=== PATIENT | female | born 2000 | race Caucasian/White ===

== ENCOUNTER 2019-11-24 15:19 | Emergency (ER) | payer OTHER, MEDICAID, SELFPAY ==
[2019-11-24 15:28] VITALS: BP 118/75; PULSE 89; RESP 16; TEMP 36.4; O2SAT 97
--- NOTE | 2019-11-24 15:49 | ED.FEMALEGU ---
HPI - Female Genitourinary <RENETTA Gann - Last Filed: 11/24/19 17:06> General Chief complaint: Urogenital-Female Stated complaint: Painful rash, potential yeast infection Time Seen by Provider: 11/24/19 15:34 Source: patient Mode of arrival: Ambulatory Limitations: no limitations History of Present Illness HPI Narrative: The patient is a 19-year-old female nonsmoker who denies pertinent medical history presents with a chief complaint of a vaginal rash for the past several weeks. She states that it is a red rash in between groin folds and she is concerned about skin yeast infection. She denies any abdominal pain fevers nausea vomiting or diarrhea. She denies any risk of sexually transmitted infection. She denies any vaginal discharge. She states she does not want an internal exam today, just wants somebody to look at the rash. She has not followed up with primary care provider regarding this since the coronavirus started. She denies any dysuria urgency or frequency. She states that the rash is very itchy. She has tried Desitin and found helpful, but it did not last. Related Data Previous Rx's Medication Instructions Recorded nystatin 1 applictn TOP TID 10 Days #30 gram 11/24/19 Allergies Allergy/AdvReac Type Severity Reaction Status Date / Time No Known Drug Allergies Allergy Verified 11/24/19 15:29 Review of Systems <GEO Gann - Last Filed: 11/24/19 17:06> Review of Systems Narrative: GENERAL: Denies chills, fatigue, malaise, fever, sweats. HEENT: Denies sinus pain, ear pain, sore throat, difficulty swallowing, dizziness. RESPIRATORY: Denies dyspnea, cough, wheezing, hemoptysis, sputum. CARDIOVASCULAR: Denies chest pain, palpitations, orthopnea, edema, GASTROINTESTINAL: Denies nausea, vomiting, abdominal pain, diarrhea, constipation, melena. : See HPI MUSCULOSKELETAL: denies weakness, joint pain, or bony pain SKIN: See HPI NEUROLOGIC: Denies weakness, headache, numbness, change in speech, confusion, seizures, incoordination. PSYCHIATRIC: No concerning psychosocial issues. 12 point review of systems is negative except for those stated above Exam <GEO Gann - Last Filed: 11/24/19 17:06> Narrative Exam Narrative: GENERAL: This is a well-nourished, well-developed patient, in no acute distress HEAD: Atraumatic. Normocephalic. No temporal or scalp tenderness. EYES: Pupils equal round and reactive. Extraocular motions intact. No scleral icterus. No injection or drainage. ENT: Nose without bleeding, purulent drainage or septal hematoma. Throat without erythema, tonsillar hypertrophy or exudate. Uvula midline. Airway patent. NECK: Trachea midline. No JVD or lymphadenopathy. Supple, nontender, no meningeal signs. CARDIOVASCULAR: Regular rate and rhythm RESPIRATORY: Clear to auscultation. Breath sounds equal bilaterally. No wheezes, rales, or rhonchi. GASTROINTESTINAL: Abdomen soft, non-tender, nondistended. No hepato-splenomegaly, or palpable masses. No guarding. EXTREMITIES: No clubbing, cyanosis, or edema. No joint tenderness, effusion, or edema noted. BACK: Nontender without deformity or crepitance. No flank tenderness. NEURO: AOx3. : With Cira RN at bedside. Flat erythematous rash and bilateral inguinal folds noted with sharp scalloped edges. Satellite lesions noted. No drainage. Consistent with candidiasis Initial Vital Signs Initial Vital Signs: Vital Signs Temperature 97.5 F L 11/24/19 15:28 Pulse Rate 89 11/24/19 15:28 Respiratory Rate 16 11/24/19 15:28 Blood Pressure 118/75 11/24/19 15:28 Pulse Oximetry 97 11/24/19 15:28 <Eleanor Jose DO - Last Filed: 11/24/19 18:31> Initial Vital Signs Initial Vital Signs: Vital Signs Temperature 97.5 F L 11/24/19 15:28 Pulse Rate 89 11/24/19 15:28 Respiratory Rate 16 11/24/19 15:28 Blood Pressure 118/75 11/24/19 15:28 Pulse Oximetry 97 11/24/19 15:28 Scores <RENETTA Gann - Last Filed: 11/24/19 17:06> GCS [place] coma scale eye opening: Spontaneous [place] coma scale verbal response: Orientated [place] coma scale motor response: Obey commands [place] coma scale total score: 15 Course <RENETTA Gann - Last Filed: 11/24/19 17:06> Orders Ordered: ED Orders 11/24/19 15:45 Urine Culture Stat Urine Microscopic Stat Vital Signs Vital signs: Vital Signs - 8 hr 11/24/19 15:28 Temperature 97.5 F L Pulse Rate 89 Respiratory Rate 16 Blood Pressure 118/75 Pulse Oximetry 97 <Eleanor Jose DO - Last Filed: 11/24/19 18:31> Orders Ordered: ED Orders 11/24/19 15:45 Urine Culture Stat Urine Microscopic Stat Vital Signs Vital signs: Vital Signs - 8 hr 11/24/19 15:28 Temperature 97.5 F L Pulse Rate 89 Respiratory Rate 16 Blood Pressure 118/75 Pulse Oximetry 97 MDM - Female Genitourinary <CHRISTOPHER Gann-BC - Last Filed: 11/24/19 17:06> Lab Data Labs: Lab Results 11/24/19 Range/Units 15:45 Urine RBC None seen (0-5/HPF) Urine WBC 5-10/hpf H (0-5/HPF) Ur Squamous Epith Cells 1-5 /hpf (0-5/HPF) Urine Bacteria Few (2-10) H (None) Ur Culture Indicated? Specimen cultured Point of Care Testing Test Results Negative Urine Dip Bedside Urine Glucose Negative Bedside Urine Bilirubin - Negative Bedside Urine Ketone - Negative Urine Specific [place] 1.015 Bedside Urine Occult Blood - Negative Bedside Urine pH 6.0 Bedside Urine Protein - Negative Bedside Urine Urobilinogen - Negative Bedside Urine Nitrite - Negative Bedside Urine Leukocytes +++ 500 Esterase MDM Narrative Medical decision making narrative: The patient is a 19-year-old female who presents with a chief complaint of a rash in her inguinal folds. Exam is consistent with candidiasis. Patient was given prescription of nystatin. Patient this does have slight bacteria in her urine, though negative . She has no urinary tract infection symptoms denies dysuria urgency or frequency so we will hold off on treatment for now and urine cultures pending at this point time. Encouraged follow-up with primary care provider, come back to the emergency department for any acute concerns. Patient has no questions or concerns upon discharge and states understanding of return precautions as well as follow-up care. <Eleanor Jose DO - Last Filed: 11/24/19 18:31> Lab Data Labs: Lab Results 11/24/19 Range/Units 15:45 Urine RBC None seen (0-5/HPF) Urine WBC 5-10/hpf H (0-5/HPF) Ur Squamous Epith Cells 1-5 /hpf (0-5/HPF) Urine Bacteria Few (2-10) H (None) Ur Culture Indicated? Specimen cultured Point of Care Testing Test Results Negative Urine Dip Bedside Urine Glucose Negative Bedside Urine Bilirubin - Negative Bedside Urine Ketone - Negative Urine Specific [place] 1.015 Bedside Urine Occult Blood - Negative Bedside Urine pH 6.0 Bedside Urine Protein - Negative Bedside Urine Urobilinogen - Negative Bedside Urine Nitrite - Negative Bedside Urine Leukocytes +++ 500 Esterase Discharge Plan Departure Patient Disposition: Home Clinical Impression: Yeast dermatitis Discharge Date/Time: 11/24/19 16:50 Instructions: Yeast Infection-Skin Activity Restrictions/Additional Instructions: Thank you for trusting us with your care today I sent a prescription of nystatin powder to [facility] We have a urine culture pending. We will call you the next few days if it results with the urinary tract infection Please follow-up with primary care provider in the next few days Please come back to the emergency department for any acute concerns Prescriptions: New nystatin 100,000 unit/gram powder 1 applictn TOP TID 10 Days Qty: 30 RF: 0
--- NOTE | 2019-11-24 16:02 | PC.NURSE ---
significant redness noted to labia bilaterally, groin folds and inner thigh. Red dots trailing down inner thighs. Reports pain, burning, itching
[2019-11-24 16:11] LABS: RBC Urine None Seen (0-5/HPF)
[2019-11-24 16:20] LABS: Bacteria Urine Few (2-10); Culture Indicated Urine Specimen Cultured; Squamous Epithelial Cell Urine 1-5 /HPF (0-5/HPF); WBC Urine 5-10/HPF (0-5/HPF)
== END 2019-11-24 16:50 | disposition home or self-care (01) ==
PROVIDERS: Emergency Provider Nurse Practitioner Family
DX: B37.3 Candidiasis of vulva and vagina (principal)
CPT/HCPCS: 81003; 81015; 81025; 87077; 87086; 87147; 87186; 99282

== ENCOUNTER 2019-12-14 19:58 | Emergency (ER) | payer OTHER, MEDICAID, SELFPAY ==
[2019-12-14 20:13] VITALS: BP 123/56; PULSE 83; RESP 16; TEMP 36.4; O2SAT 100; BMI 34.9
== END 2019-12-14 22:27 | disposition left against medical advice (07) ==
PROVIDERS: Emergency Provider Emergency Medicine
CPT/HCPCS: 99281

== ENCOUNTER 2019-12-15 19:27 | Emergency (ER) | payer OTHER, MEDICAID, SELFPAY ==
[2019-12-15 19:33] VITALS: BP 126/76; PULSE 91; RESP 14; TEMP 36.4; O2SAT 100; BMI 34.9
--- NOTE | 2019-12-15 19:38 | ED.WOUNDLAC ---
HPI - Wound/Laceration General Chief Complaint: Wound/Laceration Stated Complaint: abcess right forearm Time Seen by Provider: 12/15/19 19:38 Source: patient Mode of arrival: Ambulatory History of Present Illness HPI narrative: 19-year-old woman with history of depression developing and area of tenderness and erythema on the right forearm. It has been there for 3 days now and is expanding. Initially started as a small bump that she has thought was perhaps an infection around hair follicle. Yesterday it seemed like it was getting better and looked like it was coming to a head. She tried trying to Abraham it with a needle but did not get any purulence material back. Today the surrounding erythema has expanded. She describes no fevers, chills, cough, dyspnea, palpitations, dizziness, lightheadedness, abdominal pain, vomiting, diarrhea, dysuria, flank pain or other skin changes of any kind. Related Data Previous Rx's Medication Instructions Recorded fluconazole 150 mg PO DAILY #1 tab 12/15/19 sulfamethoxazole-trimethoprim 1 tab PO BID #14 tab 12/15/19 Allergies Allergy/AdvReac Type Severity Reaction Status Date / Time No Known Drug Allergies Allergy Verified 12/15/19 19:33 Review of Systems Review of Systems Narrative: Remainder of review of systems, unremarkable except as noted in HPI. Patient History Medical History Depression (Acute) IUD contraception (Acute) Social History Smoking Status: Never smoker Smoking Status: Never smoker alcohol intake frequency: 0-2 drinks per day Substance Use Type: does not use Exam Narrative Exam Narrative: General: Alert appropriate in no acute distress Respiratory: Able to speak in full sentences, no obvious respiratory distress Skin: No obvious rashes, warm and dry Neurologic: Grossly intact no obvious asymmetries or abnormalities Psych, appropriate insight and affect, cooperative Extremity: Right forearm with a deeper red nonfluctuant area with a punctate center that is approximately 2 cm in diameter and surrounding 2 cm of spreading erythema. No axillary adenopathy, no lymphangitis spread. Completely neurovascularly intact in the right upper extremity Initial Vital Signs Initial Vital Signs: Vital Signs Temperature 97.6 F 12/15/19 19:33 Pulse Rate 91 H 12/15/19 19:33 Respiratory Rate 14 12/15/19 19:33 Blood Pressure 126/76 12/15/19 19:33 Pulse Oximetry 100 12/15/19 19:33 Course Orders Ordered: Discontinued Medications Trimethoprim/Sulfamethoxazole (Bactrim Ds) 1 tab PO NOW ONE Stop: 12/15/19 19:45 Last Admin: 12/15/19 19:48 Dose: 1 tab Documented by: MARCELLA Vital Signs Vital signs: Vital Signs - 8 hr 12/15/19 19:33 Temperature 97.6 F Pulse Rate 91 H Respiratory Rate 14 Blood Pressure 126/76 Pulse Oximetry 100 [facility] - Wound/Laceration Medical Records Attestation: I reviewed the patient's medical records. [facility] Narrative Medical decision making narrative: Developing cellulitis without abscess right forearm. Uncomplicated. Will treat with Septra. Safe for home discharge Discharge Plan Departure Patient Disposition: Home Clinical Impression: Cellulitis Qualifiers: Site of cellulitis: extremity Site of cellulitis of extremity: upper extremity Laterality: right Qualified Code(s): L03.113 - Cellulitis of right upper limb Instructions: DI for Cellulitis -- Adult Activity Restrictions/Additional Instructions: Thank you for coming in today This is definitely a cellulitis, a bacterial skin infection. There is no abscess that has formed yet so no drainage is required at this point. You have had a single dose of Septra/Bactrim, a sulfa antibiotic, in the emergency department and you will need to complete a full course of this, twice a day for 7 days. 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 If you notice that your having vaginal itching or discharge by the end of the course of antibiotics, you can take the single dose of Diflucan to treat an antibiotic related vaginal yeast infection. Using probiotics while you are on antibiotics can help keep all of the bacteria in your gut in healthy balance If you feel that you are getting worse. The wound is increasing or developing into a larger area that looks like pus is developing under the surface, developed fevers and aches all over or have other concerning symptoms please feel free to return for further evaluation. I hope you heal quickly Prescriptions: New sulfamethoxazole-trimethoprim 800-160 mg tablet 1 tab PO BID Qty: 14 RF: 0 fluconazole 150 mg tablet 150 mg PO DAILY Qty: 1 RF: 0 Referrals: John Jimenez MD [Non-Staff] -
[2019-12-15] MEDS: TRIMETH/SULFA 160/800 (DS) TABLET 1 TAB PO (19:48)
[2019-12-15 20:11] VITALS: BP 113/57; PULSE 80; RESP 16; TEMP 36.5; O2SAT 100
== END 2019-12-15 20:11 | disposition home or self-care (01) ==
PROVIDERS: Emergency Provider Emergency Medicine
DX: L03.113 Cellulitis of right upper limb (principal)
CPT/HCPCS: 99283

== ENCOUNTER 2019-12-17 11:14 | Emergency (ER) | payer OTHER, MEDICAID, SELFPAY ==
[2019-12-17 11:35] VITALS: BP 140/68; PULSE 85; RESP 12; TEMP 36.3; O2SAT 100
--- NOTE | 2019-12-17 12:28 | ED.SKABFB ---
HPI - Skin/Abscess/Foreign Bdy General Chief complaint: Skin/Abscess/Foreign Body Stated complaint: ABSCESS DRAINED Time Seen by Provider: 12/17/19 12:19 Source: patient Mode of arrival: Ambulatory Limitations: no limitations Related Data Previous Rx's Medication Instructions Recorded fluconazole 150 mg PO DAILY #1 tab 12/15/19 sulfamethoxazole-trimethoprim 1 tab PO BID #14 tab 12/15/19 Allergies Allergy/AdvReac Type Severity Reaction Status Date / Time No Known Drug Allergies Allergy Verified 12/15/19 19:33 Patient History Social History Smoking Status: Never smoker Smoking Status: Never smoker alcohol intake frequency: 0-2 drinks per day Substance Use Type: does not use Exam Initial Vital Signs Initial Vital Signs: Vital Signs Temperature 97.3 F L 12/17/19 11:35 Pulse Rate 85 12/17/19 11:35 Respiratory Rate 12 12/17/19 11:35 Blood Pressure 140/68 12/17/19 11:35 Pulse Oximetry 100 12/17/19 11:35 Course Vital Signs Vital signs: Vital Signs - 8 hr 12/17/19 11:35 Temperature 97.3 F L Pulse Rate 85 Respiratory Rate 12 Blood Pressure 140/68 Pulse Oximetry 100 Discharge Plan Departure Prescriptions: No Action sulfamethoxazole-trimethoprim 800-160 mg tablet 1 tab PO BID Qty: 14 RF: 0 fluconazole 150 mg tablet 150 mg PO DAILY Qty: 1 RF: 0
== END 2019-12-17 13:15 | disposition left against medical advice (07) ==
PROVIDERS: Emergency Provider Emergency Medicine
CPT/HCPCS: 99281